=== PATIENT | male | born 1940 | race Caucasian/White ===

== ENCOUNTER 2019-06-19 12:09 | Emergency (ER) | payer MEDICARE ==
[2019-06-19 12:45] LABS: #Eosinphils 0.1 thou/uL (0.0-0.7); #Lymphocytes 1.2 thou/uL (1.20-3.40); #Monocytes 0.8 thou/uL (0.11-0.59); #Neutrophils 7.2 thou/uL (1.40-6.50); %Basophils 0.4 % (0.0-1.0); %Eosinophils 1.2 % (0.0-10.0); %Lymphocytes 12.5 % (21.0-51.0); %Monocytes 8.7 % (0.0-10.0); %Neutrophils 77.3 % (42.0-75.0); Hemoglobin 13.2 g/dL (14.0-18.0); Mean Corpuscular HGB CONC 33.9 g/dL (32.0-36.0); Mean Corpuscular Hemoglobin 31.9 pg (27.0-31.0); Mean Platelet Volume 6.3 fL (7.4-10.4); Platelet Count 283 thou/uL (130-400); RBC Distribution Width 12.1 % (11.5-14.5); Red Blood Cell (RBC) Count 4.14 mill/uL (4.70-6.10); White Blood Cell (WBC) Count 9.3 thou/uL (4.8-10.8)
[2019-06-19 13:08] LABS: ALT (SGPT) 28 U/L (8-55); AST (SGOT) 29 U/L (5-34); Albumin 4.1 g/dL (3.4-4.8); Alkaline Phosphatase 122 U/L (40-110); Anion Gap 15 mmol/L (10-20); BUN (Urea Nitrogen) 15 mg/dL (8.4-25.7); Bilirubin, Total 0.8 mg/dL (0.2-1.2); Calc. Creatinine Clearance 0 mL/min (70-130); Calcium 9.3 mg/dL (7.8-10.44); Carbon Dioxide 23 mmol/L (23-31); Chloride 101 mmol/L (98-107); Estimated GFR-MDRD 65; Globulin 3.3 g/dL (2.4-3.5); Glucose 104 mg/dL (83-110); Lipase 9 U/L (8-78); Potassium 4.5 mmol/L (3.5-5.1); Protein, Total 7.4 g/dL (5.8-8.1); Sodium 134 mmol/L (136-145)
--- NOTE | 2019-06-19 13:32 | RAD ---
SACRUM AND COCCYX: Date: 06/19/19 INDICATINO: Fall. FINDINGS: Sacrum and coccyx appear intact. Degenerative changes are noted. IMPRESSION: No evidence of acute fracture. POS: EMA
--- NOTE | 2019-06-19 13:34 | RAD ---
LUMBAR SPINE 3 VIEWS: Date: 06/19/19 HISTORY: Fall with injury. FINDINGS: Lumbar vertebra maintain height and alignment. There is an anterior wedge compression deformity involving the T12 vertebra, which is age-indetermina te. Mild to moderate degenerative osteophytes from the vertebra. Facet hypertrophy. Loss of disc spac e at L5-S1. IMPRESSION: Wedge compression deformity at T12 which is age-indeterminate. There are degenerative changes of the lumbar spine as described. POS: EMA
--- NOTE | 2019-06-19 14:34 | CT ---
CT THORACIC SPINE: Date: 06/19/19 Axial tomograms obtained with multiplanar reconstruction. HISTORY: Fall with injury to thoracic spine. FINDINGS: There is anterior wedge compression of T12 vertebra with compression of the superior end plates and a nterior wedging resulting in approximately 30% loss of anterior height. Slight retropulsion of civil draftsman ior superior cortex. Degenerative disc changes at this level with vacuum phenomenon at T11-T12 disc s pace. The other thoracic vertebra maintain height and alignment. Moderate degenerative changes are seen thr oughout with bridging osteophytes at multiple levels. No evidence of central canal stenosis in the th oracic spine. No other evidence of fracture or compression. IMPRESSION: 1. Anterior wedge compression fracture at T12 appears acute or subacute. 2. Thoracic vertebra otherwise show moderate degenerative changes with no other evidence of compress ion or fracture. POS: EMA
--- NOTE | 2019-06-19 14:39 | CT ---
CT LUMBAR SPINE: INDICATIONS: Fall with injury to back. TECHNIQUE: Axial tomograms obtained with multiplanar reconstruction. FINDINGS: There is anterior wedge compression of the T12 vertebra with compression of the superior endplate. Bu ckling of both anterior and posterior cortex suggest that this may represent an acute compression fra cture. There is slight retropulsion of the posterior-superior cortex of T12. There is vacuum phenomen on at the T11-T12 disk space. There is mild diffuse disk bulge at T11-T12. The posterior retropulsion mildly flattens the thecal sa c just below the T11-T12 disk space, resulting in mild central canal stenosis. At T12-L1 no significant disk bulge or protrusion. No central canal or foraminal stenosis. The lumbar vertebrae otherwise maintain normal height and alignment. There are mild degenerative disk changes throughout the lumbar spine. At L1-L2 diffuse disk bulge combined with facet hypertrophy results in mild central canal stenosis. A symmetric bulge to the right encroaches into the right foramina. At L2-L3 diffuse disk bulge combined with facet and ligamentous hypertrophy results in moderate centr al canal stenosis. Bilateral foraminal stenosis due to disk bulge and facet hypertrophy. At L3-L4 broad-based disk bulge is more prominent. Facet and ligamentous hypertrophy. Moderate to se wing central canal stenosis at this level. At L4-L5 broad-based disk bulge. Facet and ligamentous hypertrophy. Severe central canal stenosis at this level with bilateral foraminal stenosis. At L5-S1 diffuse disk bulge as well as central protrusion. Mild central canal stenosis. Bilateral for aminal stenosis. IMPRESSION: 1. Evidence of acute or subacute anterior wedge compression deformity to the T12 vertebra with slight retropulsion of the posterior-superior cortex, as described above. 2. Disk bulge and posterior hypertrophic changes at all levels of the lumbar spine result in moderate to severe central canal stenosis at several levels, as detailed above. POS: EMA
== END 2019-06-19 15:45 | disposition home or self-care (01) ==
LOC: ERS 12:09
DX: S22.089A Unspecified fracture of T11-T12 vertebra, initial encounter for closed fracture (principal); K59.00 Constipation, unspecified; E78.00 Pure hypercholesterolemia, unspecified; I10 Essential (primary) hypertension; F32.9 Major depressive disorder, single episode, unspecified; Z79.82 Long term (current) use of aspirin; Z79.899 Other long term (current) drug therapy; W11.XXXA Fall on and from ladder, initial encounter
CPT/HCPCS: 36415; 72100; 72128; 72131; 72220; 80053; 83690; 85025

== ENCOUNTER 2022-03-21 12:05 | Outpatient (CLI) | payer MEDICARE | END 2022-03-21 12:06 | disposition home or self-care (01) | LOC: BICRAD 12:05 | PROVIDERS: ATTEND Internal Medicine Cardiovascular Disease | DX: R09.89 Other specified symptoms and signs involving the circulatory and respiratory systems (principal); J84.89 Other specified interstitial pulmonary diseases | CPT/HCPCS: 71046 ==